=== PATIENT | male | born 1960 | race Hispanic/Latino ===

== ENCOUNTER 2018-11-20 18:57 | Emergency (ER) | payer OTHER ==
--- NOTE | 2018-11-20 20:40 | Event Note ---
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 hE REPORTS ACCIDENTAL CUT TO LT THUMB AND REPORTS KNIFE WENT THROUGH FINGER. RT THUMB WITH TTP AND PT REPORTS THROBBING PAIN NEEDS TD AND LAC REPAIR This initial assessment/diagnostic orders/clinical plan/treatment(s) is/are subject to change based on patients health status, clinical progression and re- assessment by fellow clinical providers in the ED. Further treatment and workup at subsequent clinical providers discretion. Patient/guardian urged not to elope from the ED as their condition may be serious if not clinically assessed and managed. Initial orders include: XRA/LAC/MEDS
[2018-11-20] MEDS ORDERED: HYDROcodone/ACETAMINOPHEN 5-325 MG TAB PO ONE (20:41)
[2018-11-20] MEDS ORDERED: TETANUS,DIPH,PERTUSS(ACELL) VACCINE 0.5 ML SYRINGE IM ONE ×2 (20:41→23:44)
--- NOTE | 2018-11-20 21:06 | XRay Report ---
LEFT HAND 3 VIEWS INDICATION / CLINICAL INFORMATION: LACERATION WITH DECREASE MOVENT. COMPARISON: None available. FINDINGS: No fracture, dislocation, soft tissue swelling or radiopaque foreign body is seen within the left williamson d. 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 Mild degenerative arthrosis is seen within the thumb CMC joint. Signer Name: Sammy Whiteside MD Signed: 11/20/2018 9:02 PM Workstation Name: [id number]
[2018-11-20] MEDS ORDERED: LIDOCAINE-MPF (1%) 10 MG/1 ML VIAL 5 ML INFILTRATI ONE (22:41)
[2018-11-20] MEDS ORDERED: cephALEXin 500 MG CAP PO ONE (22:41)
[2018-11-20] MEDS ORDERED: HYDROcodone/ACETAMINOPHEN 5-325 MG TAB ONE (23:43)
--- NOTE | 2018-11-21 | Emergency Department Report ---
Upper Extremity - HPI Chief Complaint: Extremity Injury, Upper Stated Complaint: RT THUMB INJURY/PAIN Time Seen by Provider: 11/20/18 19:47 Upper Extremity: Left Thumb (Left thumb laceration) Occurred When: Today Mechanism: Other (left thumb laceration, knife cut left thumb) Severity: severe Symptoms: Yes Pain with Movement, Yes Laceration or Abrasion (left thumb), No Deformity, No Limited Range of Movement, No Numbness, No Weakness, No Swelling, No Bruising/Ecchymosis Other History: Patient is a 58-year-old white male with no past medical history who presents to the ED with complaint of painful bleeding left thumb laceration after he accidentally cut his left thumb with a pocket knife when helping a 7-year-old child to make a totally about one hour ago. Patient denies numbness or tingling or weakness of left thumb her left hand. Patient states that he is not up-to-date with his tetanus vaccination. ED Review of Systems ROS: Stated complaint: RT THUMB INJURY/PAIN Other details as noted in HPI Constitutional: denies: chills, fever Eyes: denies: eye pain, eye discharge, vision change ENT: denies: ear pain, throat pain Respiratory: denies: cough, shortness of breath, wheezing Cardiovascular: denies: chest pain, palpitations Endocrine: no symptoms reported Gastrointestinal: denies: abdominal pain, nausea, diarrhea Genitourinary: denies: urgency, dysuria Musculoskeletal: arthralgia (left thumb pain due to a bleeding laceration). denies: back pain, joint swelling Skin: other (left thumb laceration). denies: rash, lesions Neurological: denies: headache, weakness, paresthesias Psychiatric: denies: anxiety, depression Hematological/Lymphatic: denies: easy bleeding, easy bruising ED Past Medical Hx - Past Medical History Previous Medical History?: No - Surgical History Past Surgical History?: Yes Hx Coronary Stent: Yes Additional Surgical History: C3-C7 metal - Social History Smoking Status: Never Smoker Substance Use Type: None - Medications Home Medications: Home Medications Medication Instructions Recorded Confirmed Last Taken Type Acetaminophen/Codeine [Tylenol 1 tab PO Q6H PRN #12 tab 11/21/18 Unknown Rx /Codeine # 3 tab] Ibuprofen [Motrin] 800 mg PO Q8HR PRN #20 tablet 11/21/18 Unknown Rx cephALEXin [Keflex] 500 mg PO Q8HR #30 cap 11/21/18 Unknown Rx Upper Extremity Exam - Exam General: Vital signs noted. No distress. Alert and acting appropriately. Head and Torso: No HEENT Abnormality, No Neck Tenderness, No Chest/Lungs Abnormality, No Abdominal Tenderness, No Back Tenderness Shoulder Exam: Yes Normal Range of Motion in Shoulder, No Shoulder Tenderness, No Clavicle Tenderness, No Shoulder Deformity, No AC Joint Tenderness Arm Exam: No Arm/Humerus Tenderness, No Arm Deformity Elbow: Yes Normal Range of Motion in Elbow, No Elbow Tenderness, No Elbow Deformity Forearm: No Forearm Tenderness, No Forearm Deformity, No Pain with Pronation, No Pain with Supination Wrist: Yes Normal ROM in Wrist, No Wrist Tenderness, No Wrist Deformity, No Snuffbox Tenderness, No Pain with Axial Thumb Compression Hand: Yes Hand Tenderness (left thumb), Yes Digit Tenderness (left thumb), Yes Normal ROM in Digit(s), No Hand Deformity, No Digit(s) Deformity, No Tendon Dysfunction CMS Exam: Yes Broken Skin (left thumb laceration on palmar side), Yes Normal Distal Pulses, Yes Normal Capillary Refill, Yes Normal Distal Sensation ED Course Vital Signs 11/20/18 11/20/18 20:33 23:47 Temperature 98.2 F Pulse Rate 67 Respiratory 18 20 Rate Blood Pressure 110/70 O2 Sat by Pulse 100 Oximetry - Reevaluation(s) Reevaluation #1: 11/20/18 23:58 This is a 58-year-old male who presented to the ED with bleeding left thumb laceration and severe pain after he accidentally cut his left thumb with a pocket knife about one hour ago. In the ED, patient is alert and oriented 3 and is not in distress. Patient was treated for pain and also received tetanus booster vaccination. Patient left thumb laceration was cleaned thoroughly and sutured per protocol, and patient tolerated procedure well. On reevaluation, patient is neurovascularly intact after this procedure. Patient was discharged home on pain medications and prophylactic antibiotics and advised to follow-up with his primary care physician in 7-10 days for reevaluation, or return to the ED immediately if symptoms get worse. Patient was also advised to return to the ED or to his primary care physician in 12-14 days for suture removal. - Laceration /Wound Repair Left Volar Finger Wound Location: upper extremity (left thumb laceration) Wound Length (cm): 5 Wound's Depth, Shape: superficial, linear Wound Explored: contaminated Irrigated w/ Saline (ccs): 50 Betadine Prep?: Yes Anesthesia: 1% Lidocaine Volume Anesthetic (ccs): 8 Wound Debrided: extensive Wound Repaired With: sutures Suture Size/Type: 4:0, proline Number of Sutures: 12 Layer Closure?: No Sterile Dressing Applied?: Yes Progress: Patient tolerated the procedure well. On reevaluation, patient is neurovascularly intact after the procedure. Patient was discharged home on pain medications and prophylactic antibiotics and advised to follow-up with his primary care physician in 7-10 days for reevaluation. Patient was also advised to return to the ED immediately if symptoms get worse, otherwise return to the ED or to his primary care physician in 12-14 days for suture removal. ED Medical Decision Making - Medical Decision Making This is a 58-year-old male who presented to the ED with bleeding left thumb laceration and severe pain after he accidentally cut his left thumb with a pocket knife about one hour ago. In the ED, patient is alert and oriented 3 and is not in distress. Patient was treated for pain and also received tetanus booster vaccination. Patient left thumb laceration was cleaned thoroughly and sutured per protocol, and patient tolerated procedure well. On reevaluation, patient is neurovascularly intact after this procedure. Patient was discharged home on pain medications and prophylactic antibiotics and advised to follow-up with his primary care physician in 7-10 days for reevaluation, or return to the ED immediately if symptoms get worse. Patient was also advised to return to the ED or to his primary care physician in 12-14 days for suture removal. - Differential Diagnosis left thumb laceration; left thumb puncture wound Critical care attestation.: If time is entered above; I have spent that time in minutes in the direct care of this critically ill patient, excluding procedure time. ED Disposition Clinical Impression: Laceration of left thumb without damage to nail Qualifiers: Encounter type: initial encounter Foreign body presence: without foreign body Qualified Code(s): S61.012A - Laceration without foreign body of left thumb without damage to nail, initial encounter Disposition: DC- TO HOME OR SELFCARE Is pt being admited?: No Does the pt Need Aspirin: No Condition: Stable Instructions: Finger Laceration (ED) Additional Instructions: Take medications with food, drink plenty of fluids and follow-up with your primary care physician in 7-10 days for reevaluation. Return to the ED im mediately if symptoms get worse. Otherwise return to the ED or to her primary care physician in 12-14 days for suture removal. Prescriptions: cephALEXin [Keflex] 500 mg PO Q8HR #30 cap Ibuprofen [Motrin] 800 mg PO Q8HR PRN #20 tablet PRN Reason: Pain , Severe (7-10) Acetaminophen/Codeine [Tylenol /Codeine # 3 tab] 1 tab PO Q6H PRN #12 tab PRN Reason: Pain , Severe (7-10) Referrals: PRIMARY CARE, [Primary Care Provider] - 3-5 Days Time of Disposition: 00:03 Print Language: FRISIAN
[2018-11-21 01:04] VITALS: BP 118/82
== END 2018-11-21 01:02 | disposition home or self-care (01) ==
LOC: ED 18:57
DX: S61.012A Laceration without foreign body of left thumb without damage to nail, initial encounter (principal); W26.0XXA Contact with knife, initial encounter; Y93.89 Activity, other specified; Y92.89 Other specified places as the place of occurrence of the external cause; Y99.8 Other external cause status
CPT/HCPCS: 90471; 90715